=== PATIENT | female | born 1970 | race Caucasian/White ===

== ENCOUNTER 2017-11-23 14:28 | Emergency (ER) | payer OTHER, MEDICAID, SELFPAY | END 2017-11-23 15:32 | disposition left against medical advice (07) | PROVIDERS: Family Provider Family Medicine; PCP Family Medicine; Referring Provider Family Medicine | DX: F41.9 Anxiety disorder, unspecified (principal) | CPT/HCPCS: 99282 ==

== ENCOUNTER 2018-01-01 20:04 | Emergency (ER) | payer OTHER, MEDICAID, SELFPAY ==
[2018-01-01 20:04] VITALS: BP 141/92; PULSE 97; RESP 20; TEMP 36.4; O2SAT 100; BMI 30.1
[2018-01-01 20:29] LABS: Add Manual Diff / Slide Review NO; Basophils Percent Auto 0.7 % (0-2); Eosinophils Percent Auto 0.9 % (2-4); Hematocrit 38.6 % (36-46); Hemoglobin 13.5 g/dL (12.0-16.0); Lymphocytes Percent Auto 34.3 % (25-40); Mean Corpuscular HGB Conc 34.9 % (30-36); Mean Corpuscular Hemoglobin 30.7 PG (26-34); Mean Corpuscular Volume 88.1 fL (80-100); Neutrophils Absolute Auto 4600 /uL (3000-5900); Neutrophils Percent Auto 60.1 % (50-75); Platelet Count 196 X10^3/uL (150-400); Red Blood Cell Count 4.38 X10^6/uL (4.0-5.2); Red Cell Distribution Width 12.4 % (11.6-14.8); White Blood Cell Count 7.7 X10^3/uL (4.5-11.0)
[2018-01-01 20:40] LABS: Acetaminophen < 10 ug/dL (10-30); Alanine Aminotransferase 20 IU/L (9-52); Albumin Globulin Ratio 1.3 (1.0-2.8); Alkaline Phosphatase 103 U/L (38-126); Aspartate Aminotransferase 14 IU/L (14-36); BUN Creatinine Ratio 8.8 (6-22); Bilirubin Total 0.4 mg/dL (0.2-1.3); Calcium 9.6 mg/dL (8.4-10.2); Estimated Glomerular Filt Rate > 60.0 mL/min (>60); Ethanol (ETOH) < 10 mg/dL; Glucose 83 mg/dL (70-100); HEMOLYSIS < 15 (0-50); Potassium 3.7 mmol/L (3.4-5.1); Salicylate < 1.0 mg/dL (<20); Sodium 142 mmol/L (137-145)
[2018-01-01 20:51] LABS: Bacteria Urine Few (2-10); Culture Indicated Urine Cult Not Indicated; Hyaline Casts Urine 10-30/LPF; Mucus Urine 1+ (Negative); RBC Urine 0-1/HPF (0-5/HPF); Squamous Epithelial Cell Urine 10-30 /HPF; Urine Amphetamines Positive (Negative); Urine Barbiturates Negative (Negative); Urine Benzodiazepines Negative (Negative); Urine Cocaine Negative (Negative); Urine MDMA Negative (Negative); Urine Methadone Negative (Negative); Urine Methamphetamines Positive (Negative); Urine Morphine/Opi cutoff 2000 Negative (Negative); Urine Oxycodone Negative (Negative); Urine Phencyclidine Negative (Negative); Urine Tetrahydrocannabinol Positive (Negative); Urine Tricyclic Antidepressant Negative (Negative); WBC Urine 5-10/HPF (0-5/HPF)
--- NOTE | 2018-01-01 21:00 | PC.NURSE ---
PT TRYING TO LEAVE HOSPITAL ROOM TO SMOKE CIGARETTE. PT INFORMED SHE IS NOT ALLOWED TO SMOKE ON HOSPITAL PREMISES. POLICE CALLED. PROVIDER INFORMED. PT VOLUNTARILY WALKED BACK TO ER ROOM. CHARGE NURSE AND PROVIDER AWARE OF SITUATION. PT PLACED INTO ROOM 13 WITH DOOR OPEN. NO NEW ORDERS AT THIS TIME PER PROVIDER.
--- NOTE | 2018-01-01 23:11 | PC.NURSE ---
SPOKE WITH PAOLA FROM DISPATCH CRISIS RESPONSE PER PROVIDER IN ORDER TO GET PT ASSESSED BY DCR.
--- NOTE | 2018-01-01 23:34 | PC.NURSE ---
DCR CONTACTED ETA 1 HOUR. PROVIDER AWARE PT IS CRYING AND PACING ROOM IN SECLUSION.
[2018-01-02 01:35] VITALS: BP 113/69; PULSE 75; RESP 20; TEMP 36.6; O2SAT 98
--- NOTE | 2018-01-02 01:36 | PC.NURSE ---
DCR AT BEDSIDE. SPOKE WITH MARIAM RN ABOUT PLACEMENT. PROVIDER AWARe
--- NOTE | 2018-01-02 02:09 | ED_ITS ---
HPI - Overdose General Chief Complaint: Toxicology Problem Stated Complaint: Drug OD History of Present Illness HPI Narrative: HPI 47-year-old female history of polysubstance abuse and prior suicide attempts presents after ingesting upwards of 8 ibuprofen and attempt to harm/kill herself. Patient present lights a rambling, loosely organized, invariable history notable for concern for other people threatening her and there being a gang in town that is persecutory / hostile, as such the patient took ibuprofen and attempt to kill herself. Patient reports that she previously took acetaminophen and overdosed harm herself. Patient variably reports that a family member sometime recently ago at home and she wants to go home and grieve. Patient denies hallucinations. M/S/F/SocHx notable for: bipolar one disorder, paranoia, drug induced psychotic disorder, hallucinations, fibromyalgia, anxiety, chronic pain syndrome, depression,; remainder reviewed with patient and in chart. ROS: Negative constitutional, eye, cardiovascular, pulmonary, GI, , MSK, skin , neurologic, psychiatric, endocrine unless noted in the HPI. Exam Gen: unusual mood and affect, intermittently redirectable. No clear responding to external stimuli. HEENT: normocephalic, atraumatic, PEERL, EOMI. Resp: clear to auscultation bilaterally, unlabored respirations with a normal work of breathing Card: regular rate and rhythm GI: non-tender, non-distended. MSK: No visible deformities, strength and tone within normal limits. Skin: Normal color with no visible lesions. Neuro: alert and oriented times 3, moving all extremities without appreciable deficit. Psych: markedly unusual mood and affect. Labs / Imaging (pertinent): WBC 7.7, HB 13.5, sodium 142, potassium 3.7, AST 14, ALT 20 11/27/17 - TSH 1.11, free T4 1.13 UDS with amphetamines, methamphetamines, marijuana, EtOH less than 10, acetaminophen less than 10, salicylates less than 1.0. MDM Previous chart, nursing note, and vitals reviewed. A: 47-year-old female history of polysubstance abuse prior suicide attempts presents after ingesting upwards of 8 ibuprofen and attempt to harm/kill herself. DDx: suicidal ideation, suicidal gesture, depression, overdose, intoxication, infectious process, thyroid, electrolyte or hematologic abnormalities. Medical evaluation: history and exam concerning for amphetamines induced psychosis/exacerbation of underlying mental illness. No clear evidence of an active infectious process. Salicylate and acetaminophen levels are below detection, and their alcohol level is below detection. Recent TSH is within normal limits. UDS notable for amphetamines, methamphetamines, and THC. CBC and BMP were reviewed and were within normal limits. Patient medically cleared for further inpatient mental health care. Suicidal evaluation: patient considered high risk due to prior attempts, knowledge of lethal medications, ongoing suicidal statements, and active psychosis. Patient attempted to flee from emergency department. Patient intermittently redirectable. Patient placed in seclusion for own safety. Patient placed on mental health hold. Mental health evaluation obtained. Patient transferred for further mental health care. Impression: suicide attempt, psychosis (please reference below for remainder of encounter information) Related Data Home Medications Medication Instructions Recorded Confirmed olanzapine [Zyprexa] 5 mg PO BID #0 07/31/17 Previous Rx's Medication Instructions Recorded albuterol sulfate 3 ml INH Q4HP #90 ea 03/11/16 triamcinolone acetonide 0 gm TOPICAL BID #1 tube 03/11/16 Disabled Parking Permit / . #1 10/04/16 epinephrine 0.3 mg IM X1 #1 syr 02/01/17 hydroxyzine HCl 0 mg PO Q6HP PRN #120 tab 02/01/17 lovastatin 20 mg PO QDAYPM #90 tab 02/02/17 cholecalciferol (vitamin D3) 4,000 iu PO QDAY #100 cap 03/14/17 [Vitamin D3] omeprazole 40 mg PO QAM #30 cap 03/30/17 albuterol sulfate [Ventolin HFA] 2 puff INH Q4HP PRN #8 gm 04/18/17 ibuprofen 800 mg PO Q8HP PRN #30 tab 06/11/17 Disabled Parking Permit / . #1 06/15/17 levothyroxine 0.1 mg PO QAM #90 tab 08/01/17 clonazepam [Klonopin] 1 mg PO QID #120 08/02/17 CHLORZOXAZONE (PARAFON FORTE DSC) 500 mg PO TID #90 tab 09/04/17 lamotrigine [Lamictal] 50 mg PO HS #60 mg 09/04/17 Disabled Parking Permit / . #1 09/14/17 meloxicam [Mobic] 15 mg PO AMCC #90 tab 09/19/17 oxycodone 0 PO Q6HP #40 tab 09/28/17 oxycodone 0 PO Q6HP PRN #224 tab 09/28/17 conj estrog-medroxyprogest maia 1 tab PO QDAY #90 tab 10/02/17 [Prempro] mirtazapine [Remeron] 15 mg PO HS #30 tab 10/02/17 Disabled Parking Permit ian #1 10/20/17 furosemide 40 mg PO QDAY #30 tab 11/03/17 oxybutynin chloride [Ditropan XL] 10 mg PO QDAY #90 tab 11/06/17 citalopram [Celexa] 40 mg PO QDAY #90 tab 11/22/17 gabapentin [Neurontin] 1,200 mg PO TID #180 tab 11/22/17 hydrocodone-acetaminophen [[place]] 1 - 2 tab PO SEE INSTRUCTIONS #120 12/05/17 tab Allergies Allergy/AdvReac Type Severity Reaction Status Date / Time amphetamine [From ADDERALL] Allergy Severe BLISTERING Unverified 11/22/17 13:06 codeine [CODEINE] Allergy Severe Anaphylaxis Unverified 11/22/17 13:06 dextroamphetamine Allergy Severe BLISTERING Unverified 11/22/17 13:06 [From ADDERALL] latex [LATEX] Allergy Severe Heart Unverified 11/22/17 13:06 Palpitation Penicillins [PENICILLINS] Allergy Severe Anaphylaxis Unverified 11/22/17 13:06 Sulfa (Sulfonamide Allergy Severe tachycardia Unverified 11/22/17 13:06 Antibiotics) [SULFA (SULFONAMIDE ANTIBIOTICS)] adhesive [ADHESIVE] Allergy Mild Unverified 11/22/17 13:06 cephalexin [CEPHALEXIN] Allergy Mild Hives Unverified 11/22/17 13:06 cyclobenzaprine Allergy Mild Tachycardia Unverified 11/22/17 13:06 [CYCLOBENZAPRINE] fluticasone [From FLONASE] Allergy Mild Unverified 11/22/17 13:06 zolpidem [From AMBIEN] Allergy Unknown I'M NOT Unverified 11/22/17 13:06 [facility] Social History Smoking Status: Current every day smoker Exam Initial Vital Signs Initial Vital Signs: Vital Signs Temperature 97.6 F 01/01/18 20:04 Pulse Rate 97 H 01/01/18 20:04 Respiratory Rate 20 01/01/18 20:04 Blood Pressure 141/92 H 01/01/18 20:04 Pulse Oximetry 100 01/01/18 20:04 Course Orders Ordered: ED Orders 01/01/18 20:20 Acetaminophen Stat Complete Blood Count AUTO DIFF Stat Comprehensive Metabolic Panel Stat Ethanol (ETOH) Stat Salicylate Stat 01/01/18 20:35 Rapid Drug Screen, Urine Stat Urine Microscopic Stat 01/02/18 01:25 TSH [Thyroid Stimulating Hormone] Stat Discontinued Medications Haloperidol (Haldol) 5 mg IM NOW ONE Stop: 01/01/18 23:02 Last Admin: 01/02/18 01:29 Dose: Lorazepam (Ativan) 2 mg IM NOW ONE Stop: 01/01/18 23:02 Last Admin: 01/02/18 01:28 Dose: Vital Signs - 8 hr 01/01/18 20:04 01/02/18 01:35 Temperature 97.6 F 98 F Pulse Rate 97 H 75 Respiratory Rate 20 20 Blood Pressure 141/92 H Blood Pressure [Left Arm] 113/69 Pulse Oximetry 100 98 MDM - Overdose Lab Data Result diagrams: 01/01/18 20:20 01/01/18 20:20 Lab Results 01/01/18 01/01/18 01/01/18 Range/Units 20:20 20:20 20:35 WBC 7.7 (4.5-11.0) X10^3/uL RBC 4.38 (4.0-5.2) X10^6/uL Hgb 13.5 (12.0-16.0) g/dL Hct 38.6 (36-46) % MCV 88.1 (80-100) fL MCH 30.7 (26-34) PG MCHC 34.9 (30-36) % RDW 12.4 (11.6-14.8) % Plt Count 196 (150-400) X10^3/uL Neut % (Auto) 60.1 (50-75) % Lymph % (Auto) 34.3 (25-40) % [place] % (Auto) 4.0 (3-14) % Eos % (Auto) 0.9 L (2-4) % Baso % (Auto) 0.7 (0-2) % Neut # (Auto) 4600 (0874-1707) /uL Sodium 142 (137-145) mmol/L Potassium 3.7 (3.4-5.1) mmol/L Chloride 105.0 (98-107) mmol/L Carbon Dioxide 25.0 (22-32) mmol/L BUN 7.0 (7-17) mg/dL Creatinine 0.80 (0.52-1.04) mg/dL Estimated GFR > 60.0 (>60) mL/min BUN/Creatinine Ratio 8.8 (6-22) Glucose 83 (70-100) mg/dL Calcium 9.6 (8.4-10.2) mg/dL Total Bilirubin 0.4 (0.2-1.3) mg/dL AST 14 (14-36) IU/L ALT 20 (9-52) IU/L Alkaline Phosphatase 103 (38-126) U/L Total Protein 7.0 (6.3-8.2) g/dL Albumin 4.0 (3.5-5.0) g/dL Globulin 3.0 (1.7-4.1) g/dL Albumin/Globulin Ratio 1.3 (1.0-2.8) Urine RBC 0-1/hpf (0-5/HPF) Urine WBC 5-10/hpf H (0-5/HPF) Ur Squamous Epith Cells 10-30 /hpf H Urine Bacteria Few (2-10) H (None) Hyaline Casts 10-30/lpf (None) Urine Mucus 1+ H (Negative) Ur Culture Indicated? Cult not indicated Micro UA Comment Not Reportable Salicylates < 1.0 (<20) mg/dL Urine Opiates Screen (Negative) Ur Oxycodone Screen (Negative) Urine Methadone Screen (Negative) Acetaminophen < 10 L (10-30) ug/dL Ur Barbiturates Screen (Negative) U Tricyclic Antidepress (Negative) Ur Phencyclidine Scrn (Negative) Ur Amphetamines Screen (Negative) U Methamphetamines Scrn (Negative) Ur MDMA Scrn (Ecstasy) (Negative) U Benzodiazepines Scrn (Negative) Urine Cocaine Screen (Negative) U Marijuana (THC) Screen (Negative) Ethyl Alcohol < 10 mg/dL 01/01/18 Range/Units 20:35 WBC (4.5-11.0) X10^3/uL RBC (4.0-5.2) X10^6/uL Hgb (12.0-16.0) g/dL Hct (36-46) % MCV (80-100) fL MCH (26-34) PG MCHC (30-36) % RDW (11.6-14.8) % Plt Count (150-400) X10^3/uL Neut % (Auto) (50-75) % Lymph % (Auto) (25-40) % [place] % (Auto) (3-14) % Eos % (Auto) (2-4) % Baso % (Auto) (0-2) % Neut # (Auto) (2219-7073) /uL Sodium (137-145) mmol/L Potassium (3.4-5.1) mmol/L Chloride (98-107) mmol/L Carbon Dioxide (22-32) mmol/L BUN (7-17) mg/dL Creatinine (0.52-1.04) mg/dL Estimated GFR (>60) mL/min BUN/Creatinine Ratio (6-22) Glucose (70-100) mg/dL Calcium (8.4-10.2) mg/dL Total Bilirubin (0.2-1.3) mg/dL AST (14-36) IU/L ALT (9-52) IU/L Alkaline Phosphatase (38-126) U/L Total Protein (6.3-8.2) g/dL Albumin (3.5-5.0) g/dL Globulin (1.7-4.1) g/dL Albumin/Globulin Ratio (1.0-2.8) Urine RBC (0-5/HPF) Urine WBC (0-5/HPF) Ur Squamous Epith Cells Urine Bacteria (None) Hyaline Casts (None) Urine Mucus (Negative) Ur Culture Indicated? Micro UA Comment Salicylates (<20) mg/dL Urine Opiates Screen Negative (Negative) Ur Oxycodone Screen Negative (Negative) Urine Methadone Screen Negative (Negative) Acetaminophen (10-30) ug/dL Ur Barbiturates Screen Negative (Negative) U Tricyclic Antidepress Negative (Negative) Ur Phencyclidine Scrn Negative (Negative) Ur Amphetamines Screen Positive H (Negative) U Methamphetamines Scrn Positive H (Negative) Ur MDMA Scrn (Ecstasy) Negative (Negative) U Benzodiazepines Scrn Negative (Negative) Urine Cocaine Screen Negative (Negative) U Marijuana (THC) Screen Positive H (Negative) Ethyl Alcohol mg/dL Discharge Plan Departure Prescriptions: No Action albuterol sulfate 2.5 MG/3 ML solution for nebulization 3 ml INH Q4HP Qty: 90 RF: 5 triamcinolone acetonide 0.1 % cream Topical BID Qty: 1 RF: 5 Disabled Parking Permit . Qty: 1 RF: 0 hydroxyzine HCl 25 MG tablet PO Q6HP PRNQty: 120 RF: 5 epinephrine 0.3 MG/0.3 ML auto-injector 0.3 mg IM X1 Qty: 1 RF: 5 lovastatin 20 MG tablet 20 mg PO QDAYPM Qty: 90 RF: 3 cholecalciferol (vitamin D3) [Vitamin D3] 4,000 UNIT capsule 4,000 iu PO QDAY Qty: 100 RF: 5 omeprazole 40 MG capsule,delayed release(DR/EC) 40 mg PO QAM Qty: 30 RF: 11 albuterol sulfate [Ventolin HFA] 90 MCG/PUFF HFA aerosol inhaler 2 puff INH Q4HP PRNQty: 8 RF: 11 ibuprofen 800 MG tablet 800 mg PO Q8HP PRNQty: 30 RF: 0 Disabled Parking Permit . Qty: 1 RF: 0 olanzapine [Zyprexa] 10 MG tablet 5 mg PO BID Qty: 0 RF: 0 levothyroxine 100 MCG tablet 0.1 mg PO QAM Qty: 90 RF: 1 clonazepam [Klonopin] 1 MG tablet 1 mg PO QID Qty: 120 RF: 5 lamotrigine [Lamictal] 25 MG tablet 50 mg PO HS Qty: 60 RF: 0 CHLORZOXAZONE (PARAFON FORTE DSC) 500 mg PO TID Qty: 90 RF: 0 Disabled Parking Permit . Qty: 1 RF: 0 meloxicam [Mobic] 15 MG tablet 15 mg PO AMCC Qty: 90 RF: 1 oxycodone 10 MG tablet PO Q6HP PRNQty: 224 RF: 0 oxycodone 10 MG tablet PO Q6HP Qty: 40 RF: 0 mirtazapine [Remeron] 15 MG tablet 15 mg PO HS Qty: 30 RF: 5 conj estrog-medroxyprogest maia [Prempro] 0.625 MG/2.5 MG tablet 1 tab PO QDAY Qty: 90 RF: 0 Disabled Parking Permit Qty: 1 RF: 0 furosemide 40 MG tablet 40 mg PO QDAY Qty: 30 RF: 3 oxybutynin chloride [Ditropan XL] 10 MG tablet extended release 24hr 10 mg PO QDAY Qty: 90 RF: 1 citalopram [Celexa] 40 MG tablet 40 mg PO QDAY Qty: 90 RF: 3 gabapentin [Neurontin] 600 MG tablet 1,200 mg PO TID Qty: 180 RF: 1 hydrocodone-acetaminophen [[place]] 10 MG/325 MG tablet 1 - 2 tab PO SEE INSTRUCTIONS Qty: 120 RF: 0
[2018-01-02 02:11] LABS: Thyroid Stimulating Hormone 1.22 uIU/mL (0.47-4.68)
[2018-01-02] MEDS: HALOPERIDOL 5 MG/ML VIAL IM (03:37)
[2018-01-02] MEDS: diphenhydrAMINE 50 MG/ML VIAL 25 MG IM (03:37)
[2018-01-02 03:44] VITALS: BP 132/78; PULSE 85; RESP 18
--- NOTE | 2018-01-02 04:25 | PC.NURSE ---
Unable to document in OCT. @ 0337 25 mg benadryl, 2 mg ativan, and 5 mg of haldol given IM (verbal orders received by Dr Ackerman) to help with pt agitation and harm to self. Prior to administration pt was banging arms on door and screaming.
[2018-01-02 06:01] VITALS: BP 111/69; PULSE 61; RESP 14; O2SAT 97
[2018-01-02 08:45] VITALS: BP 124/81; PULSE 65; RESP 16; O2SAT 97
--- NOTE | 2018-01-02 08:51 | PC.NURSE ---
Pt awakened for vs, very cooperative, up to bathroom. aware of transfer and agreeable. nad. pt transfer to [facility] via ambulance.
== END 2018-01-02 08:57 | disposition short-term general hospital (02) ==
PROVIDERS: Emergency Medicine; Emergency Provider Emergency Medicine; Family Provider Family Medicine; PCP Family Medicine
DX: T14.91XA Suicide attempt, initial encounter (principal); F29 Unspecified psychosis not due to a substance or known physiological condition
CPT/HCPCS: 36415; 80053; 80305; 80320; 80329; 81003; 81015; 81025; 84443; 85025; 96372; 99285; G0480; J1200; J1630

== ENCOUNTER 2018-01-23 13:52 | Emergency (ER) | payer OTHER, MEDICAID, SELFPAY ==
[2018-01-23 14:18] VITALS: BP 112/70; PULSE 70; RESP 14; TEMP 36.1; O2SAT 98
--- NOTE | 2018-01-23 14:26 | DI.RAD.S_ITS ---
PROCEDURE: XR ANKLE LT MIN 3V INDICATIONS: inversion injury yesterday - pop felt in achilles area today TECHNIQUE: 3 views of the ankle were acquired. COMPARISON: [facility], ANKLE 3 VIEWS RIGHT, 01/23/2017, 14:50. [facility], ANKLE 3 VIEWS LEFT, 07/03/2014, 18:48. [facility], ANKLE 3 VIEWS RIGHT, 08/27/2013, 15:32. FINDINGS: Bones: No fractures or dislocations. An accessory ossicle overlies the medial aspect of the distal tip of the fibula, seen on the straight AP projection Ankl. se is normally aligned. No suspicious bony lesions. Soft tissues: No tibiotalar joint effusion. Achilles tendon appears normal. IMPRESSION: What appears to be an accessory ossicle overlies the inferior medial aspect of the distal fibula on the straight AP projection. No definite fracture found. Dictated by: Wiliam Claudio M.D. on 01/23/2018 at 14:52 Approved by: Wiliam Claudio M.D. on 01/23/2018 at 14:54
[2018-01-23 15:57] VITALS: PULSE 80
[2018-01-23] MEDS: ACETAMINOPHEN 325 MG TABLET 650 MG PO (16:02)
[2018-01-23] MEDS: IBUPROFEN 400 MG TABLET PO (16:03)
--- NOTE | 2018-01-23 16:11 | ED.LOWEXIN ---
HPI - Extremity Injury (Lower) <Park Lacey PA-C - Last Filed: 01/23/18 21:56> General Chief Complaint: Extremity Injury, Lower Stated Complaint: FELL YESTERDAY,POSSIBLY PULLED ACHILLES Time Seen by Provider: 01/23/18 16:11 Source: patient Mode of arrival: wheelchair Limitations: no limitations History of Present Illness HPI Narrative: This 47 year old female is staying at a local campground. She states that she rolled her left ankle and fell 2 days ago and has had some pain but able to walk. She states she walked a long way to the bus today and felt a pop earlier, then it began hurting more on the side and also in the back of her ankle. She states that it does feel like it could give out on her, and this and pain keep her from walking. She denies any paresthesia, other injuries or pain. Related Data Previous Rx's Medication Instructions Recorded albuterol sulfate 3 ml INH Q4HP #90 ea 03/11/16 epinephrine 0.3 mg IM X1 #1 syr 02/01/17 lovastatin 20 mg PO QDAYPM #90 tab 02/02/17 omeprazole 40 mg PO QAM #30 cap 03/30/17 albuterol sulfate [Ventolin HFA] 2 puff INH Q4HP PRN #8 gm 04/18/17 levothyroxine 0.1 mg PO QAM #90 tab 08/01/17 clonazepam [Klonopin] 1 mg PO QID #120 08/02/17 meloxicam [Mobic] 15 mg PO AMCC #90 tab 09/19/17 mirtazapine [Remeron] 15 mg PO HS #30 tab 10/02/17 furosemide 40 mg PO QDAY #30 tab 11/03/17 oxybutynin chloride [Ditropan XL] 10 mg PO QDAY #90 tab 11/06/17 citalopram [Celexa] 40 mg PO QDAY #90 tab 11/22/17 gabapentin [Neurontin] 1,200 mg PO TID #180 tab 11/22/17 Allergies Allergy/AdvReac Type Severity Reaction Status Date / Time amphetamine [From ADDERALL] Allergy Severe BLISTERING Verified 01/23/18 16:05 codeine [CODEINE] Allergy Severe Anaphylaxis Verified 06/12/18 16:05 dextroamphetamine Allergy Severe BLISTERING Verified 01/23/18 16:05 [From ADDERALL] latex [LATEX] Allergy Severe Heart Verified 01/23/18 16:05 Palpitation Penicillins [PENICILLINS] Allergy Severe Anaphylaxis Verified 01/23/18 16:05 Sulfa (Sulfonamide Allergy Severe tachycardia Verified 01/23/18 16:05 Antibiotics) [SULFA (SULFONAMIDE ANTIBIOTICS)] adhesive [ADHESIVE] Allergy Mild Verified 01/23/18 16:05 cephalexin [CEPHALEXIN] Allergy Mild Hives Verified 01/23/18 16:05 cyclobenzaprine Allergy Mild Tachycardia Verified 01/23/18 16:05 [CYCLOBENZAPRINE] fluticasone [From FLONASE] Allergy Mild Verified 01/23/18 16:05 zolpidem [From AMBIEN] Allergy Unknown I'M NOT Verified 01/23/18 16:05 SURE Review of Systems <MADAY Cameron Last Filed: 01/23/18 21:56> Review of Systems All systems reviewed & are unremarkable except as noted in HPI and below Exam <MADAY Cameron Last Filed: 01/23/18 21:56> Narrative Exam Narrative: GENERAL APPEARANCE: Patient sitting comfortably, in no distress. LUNGS: Clear to auscultation bilaterally. HEART: Rate and rhythm regular without murmur, normal S1 and S2, no S3 or S4. MUSCULOSKELETAL: Left ankle there is no effusion. Tender over the Achilles, which is intact by palpation, as well as inferior and anterior to the lateral malleolus. No tenderness elsewhere over the ankle. No tenderness over the metatarsals or tarsal bones. She has slightly reduced flexion/extension of the ankle secondary to tenderness but strength is intact against resistance. NEUROVASCULAR: Left foot is warm and pink with intact pedal pulses and sensation grossly intact Initial Vital Signs Initial Vital Signs: Vital Signs Temperature 97 F L 01/23/18 14:18 Pulse Rate 70 01/23/18 14:18 Respiratory Rate 14 01/23/18 14:18 Blood Pressure 112/70 01/23/18 14:18 Pulse Oximetry 98 01/23/18 14:18 <Neftali Keane DO - Last Filed: 01/29/18 08:30> Initial Vital Signs Initial Vital Signs: Vital Signs Temperature 97 F L 01/23/18 14:18 Pulse Rate 70 01/23/18 14:18 Respiratory Rate 14 01/23/18 14:18 Blood Pressure 112/70 01/23/18 14:18 Pulse Oximetry 98 01/23/18 14:18 Course <Park Lacey PA-C - Last Filed: 01/23/18 21:56> Hospital Course: Reviewed x-ray findings with patient. She is able to ambulate with Aroldo wrapping and ankle splint. Advised follow-up with PCP 1 week and repeat x-rays if not improving, and she is agreeable Orders Ordered: Discontinued Medications Acetaminophen (Tylenol) 650 mg PO NOW ONE Stop: 01/23/18 15:57 Last Admin: 01/23/18 16:02 Dose: 650 mg Ibuprofen (Advil) 400 mg PO NOW ONE Stop: 01/23/18 15:58 Last Admin: 01/23/18 16:03 Dose: 400 mg Vital Signs - 8 hr 01/23/18 14:18 01/23/18 15:57 01/23/18 16:35 Temperature 97 F L Pulse Rate 70 70 Pulse Rate [Left Dorsalis Pedis] 80 Respiratory Rate 14 14 Blood Pressure 112/70 Blood Pressure [Left Arm] 110/72 Pulse Oximetry 98 95 <Neftali Keane DO - Last Filed: 01/29/18 08:30> Orders Ordered: Discontinued Medications Acetaminophen (Tylenol) 650 mg PO NOW ONE Stop: 01/23/18 15:57 Last Admin: 01/23/18 16:02 Dose: 650 mg Ibuprofen (Advil) 400 mg PO NOW ONE Stop: 01/23/18 15:58 Last Admin: 01/23/18 16:03 Dose: 400 mg Vital Signs - 8 hr 01/23/18 14:18 01/23/18 15:57 01/23/18 16:35 Temperature 97 F L Pulse Rate 70 70 Pulse Rate [Left Dorsalis Pedis] 80 Respiratory Rate 14 14 Blood Pressure 112/70 Blood Pressure [Left Arm] 110/72 Pulse Oximetry 98 95 MDM - Extremity Injury (Lower) <Park Lacey PA-C - Last Filed: 01/23/18 21:56> Imaging Data ankle: Radiologist's impression: [address] [address] XRay Report Signed Patient: Chrissie Sarabia MR#: [id number] : 1970 Acct:[id number] Age/Sex: 47 / F Date of Service: 01/23/18 Loc: ED Accession Number: [id number] Procedure: XR ankle LT min 3V Ordering Provider: Park Lacey P.A-C PROCEDURE: XR ANKLE LT MIN 3V INDICATIONS: inversion injury yesterday - pop felt in achilles area today TECHNIQUE: 3 views of the ankle were acquired. COMPARISON: [facility], [facility], ANKLE 3 VIEWS RIGHT, 01/23/2017, 14:50. [facility], CR, ANKLE 3 VIEWS LEFT, 07/03/2014, 18:48. [facility], , ANKLE 3 VIEWS RIGHT, 08/27/2013, 15:32. FINDINGS: Bones: No fractures or dislocations. An accessory ossicle overlies the medial aspect of the distal tip of the fibula, seen on the straight AP projection Ankl. se is normally aligned. No suspicious bony lesions. Soft tissues: No tibiotalar joint effusion. Achilles tendon appears normal. IMPRESSION: What appears to be an accessory ossicle overlies the inferior medial aspect of the distal fibula on the straight AP projection. No definite fracture found. Dictated by: Wiliam Claudio M.D. on 01/23/2018 at 14:52 Approved by: Wiliam Claudio M.D. on 01/23/2018 at 14:54 Discharge Plan Departure Patient Disposition: Home, Self-Care Clinical Impression: Ankle sprain Discharge Date/Time: 01/23/18 17:13 Interventions: ED Discharge Assessment Last Done: 01/23/18 17:12 Instructions: DI for Ankle Sprain Activity Restrictions/Additional Instructions: Wear the AROLDO wrap and immobilizer splint to help with pain and stability. Use [id number] pain medicine as needed. Gentle walking on even ground is okay as tolerated. Return as we talked about if you have any acutely worsening symptoms. Otherwise, follow up with your PCP is this is not getting better in the next week as you may need repeat x-rays or more testing. Prescriptions: No Action albuterol sulfate 2.5 MG/3 ML solution for nebulization 3 ml INH Q4HP Qty: 90 RF: 5 epinephrine 0.3 MG/0.3 ML auto-injector 0.3 mg IM X1 Qty: 1 RF: 5 lovastatin 20 MG tablet 20 mg PO QDAYPM Qty: 90 RF: 3 omeprazole 40 MG capsule,delayed release(DR/EC) 40 mg PO QAM Qty: 30 RF: 11 albuterol sulfate [Ventolin HFA] 90 MCG/PUFF HFA aerosol inhaler 2 puff INH Q4HP PRNQty: 8 RF: 11 levothyroxine 100 MCG tablet 0.1 mg PO QAM Qty: 90 RF: 1 clonazepam [Klonopin] 1 MG tablet 1 mg PO QID Qty: 120 RF: 5 meloxicam [Mobic] 15 MG tablet 15 mg PO AMCC Qty: 90 RF: 1 mirtazapine [Remeron] 15 MG tablet 15 mg PO HS Qty: 30 RF: 5 furosemide 40 MG tablet 40 mg PO QDAY Qty: 30 RF: 3 oxybutynin chloride [Ditropan XL] 10 MG tablet extended release 24hr 10 mg PO QDAY Qty: 90 RF: 1 citalopram [Celexa] 40 MG tablet 40 mg PO QDAY Qty: 90 RF: 3 gabapentin [Neurontin] 600 MG tablet 1,200 mg PO TID Qty: 180 RF: 1 Referrals: Paulo Dinh MD [Primary Care Provider] - <Neftali Keane DO - Last Filed: 01/29/18 08:30> Cosign ED Attending Cosignature Attestation: I was immediately available in the department for consultation. This documentation has been reviewed and I agree with assessment and plan. Supervised by Neftali Keane DO
--- NOTE | 2018-01-23 16:17 | ED_ITS ---
HPI - Extremity Injury (Lower) <Park Lacey PA-C - Last Filed: 01/23/18 21:56> General Chief Complaint: Extremity Injury, Lower Stated Complaint: FELL YESTERDAY,POSSIBLY PULLED ACHILLES Time Seen by Provider: 01/23/18 16:11 Source: patient Mode of arrival: wheelchair Limitations: no limitations History of Present Illness HPI Narrative: This 47 year old female is staying [place] a local campground. She states that she rolled her left ankle and fell 2 days ago and has had some pain but able to walk. She states she walked a long way to the bus today and felt a pop earlier, then it began hurting more on the side and also in the back of her ankle. She states that it does feel like it could give out on her, and this and pain keep her from walking. She denies any paresthesia, other injuries or pain. Related Data Previous Rx's Medication Instructions Recorded albuterol sulfate 3 ml INH Q4HP #90 ea 03/11/16 epinephrine 0.3 mg IM X1 #1 syr 02/01/17 lovastatin 20 mg PO QDAYPM #90 tab 02/02/17 omeprazole 40 mg PO QAM #30 cap 03/30/17 albuterol sulfate [Ventolin HFA] 2 puff INH Q4HP PRN #8 gm 04/18/17 levothyroxine 0.1 mg PO QAM #90 tab 08/01/17 clonazepam [Klonopin] 1 mg PO QID #120 08/02/17 meloxicam [Mobic] 15 mg PO AMCC #90 tab 09/19/17 mirtazapine [Remeron] 15 mg PO HS #30 tab 10/02/17 furosemide 40 mg PO QDAY #30 tab 11/03/17 oxybutynin chloride [Ditropan XL] 10 mg PO QDAY #90 tab 11/06/17 citalopram [Celexa] 40 mg PO QDAY #90 tab 11/22/17 gabapentin [Neurontin] 1,200 mg PO TID #180 tab 11/22/17 Allergies Allergy/AdvReac Type Severity Reaction Status Date / Time amphetamine [From ADDERALL] Allergy Severe BLISTERING Verified 01/23/18 16:05 codeine [CODEINE] Allergy Severe Anaphylaxis Verified 06/12/18 16:05 dextroamphetamine Allergy Severe BLISTERING Verified 01/23/18 16:05 [From ADDERALL] latex [LATEX] Allergy Severe Heart Verified 01/23/18 16:05 Palpitation Penicillins [PENICILLINS] Allergy Severe Anaphylaxis Verified 01/23/18 16:05 Sulfa (Sulfonamide Allergy Severe tachycardia Verified 01/23/18 16:05 Antibiotics) [SULFA (SULFONAMIDE ANTIBIOTICS)] adhesive [ADHESIVE] Allergy Mild Verified 01/23/18 16:05 cephalexin [CEPHALEXIN] Allergy Mild Hives Verified 01/23/18 16:05 cyclobenzaprine Allergy Mild Tachycardia Verified 01/23/18 16:05 [CYCLOBENZAPRINE] fluticasone [From FLONASE] Allergy Mild Verified 01/23/18 16:05 zolpidem [From AMBIEN] Allergy Unknown I'M NOT Verified 01/23/18 16:05 SURE Review of Systems <MADAY Cameron Last Filed: 01/23/18 21:56> Review of Systems All systems reviewed & are unremarkable except as noted in HPI and below Exam <MADAY Cameron Last Filed: 01/23/18 21:56> Narrative Exam Narrative: GENERAL APPEARANCE: Patient sitting comfortably, in no distress. LUNGS: Clear to auscultation bilaterally. HEART: Rate and rhythm regular without murmur, normal S1 and S2, no S3 or S4. MUSCULOSKELETAL: Left ankle there is no effusion. Tender over the Achilles, which is intact by palpation, as well as inferior and anterior to the lateral malleolus. No tenderness elsewhere over the ankle. No tenderness over the metatarsals or tarsal bones. She has slightly reduced flexion/extension of the ankle secondary to tenderness but strength is intact against resistance. NEUROVASCULAR: Left foot is warm and pink with intact pedal pulses and sensation grossly intact Initial Vital Signs Initial Vital Signs: Vital Signs Temperature 97 F L 01/23/18 14:18 Pulse Rate 70 01/23/18 14:18 Respiratory Rate 14 01/23/18 14:18 Blood Pressure 112/70 01/23/18 14:18 Pulse Oximetry 98 01/23/18 14:18 <Neftali Keane DO - Last Filed: 01/29/18 08:30> Initial Vital Signs Initial Vital Signs: Vital Signs Temperature 97 F L 01/23/18 14:18 Pulse Rate 70 01/23/18 14:18 Respiratory Rate 14 01/23/18 14:18 Blood Pressure 112/70 01/23/18 14:18 Pulse Oximetry 98 01/23/18 14:18 Course <Park Lacey PA-C - Last Filed: 01/23/18 21:56> Hospital Course: Reviewed x-ray findings with patient. She is able to ambulate with Aroldo wrapping and ankle splint. Advised follow-up with PCP 1 week and repeat x-rays if not improving, and she is agreeable Orders Ordered: Discontinued Medications Acetaminophen (Tylenol) 650 mg PO NOW ONE Stop: 01/23/18 15:57 Last Admin: 01/23/18 16:02 Dose: 650 mg Ibuprofen (Advil) 400 mg PO NOW ONE Stop: 01/23/18 15:58 Last Admin: 01/23/18 16:03 Dose: 400 mg Vital Signs - 8 hr 01/23/18 14:18 01/23/18 15:57 01/23/18 16:35 Temperature 97 F L Pulse Rate 70 70 Pulse Rate [Left Dorsalis Pedis] 80 Respiratory Rate 14 14 Blood Pressure 112/70 Blood Pressure [Left Arm] 110/72 Pulse Oximetry 98 95 <Neftali Keane DO - Last Filed: 01/29/18 08:30> Orders Ordered: Discontinued Medications Acetaminophen (Tylenol) 650 mg PO NOW ONE Stop: 01/23/18 15:57 Last Admin: 01/23/18 16:02 Dose: 650 mg Ibuprofen (Advil) 400 mg PO NOW ONE Stop: 01/23/18 15:58 Last Admin: 01/23/18 16:03 Dose: 400 mg Vital Signs - 8 hr 01/23/18 14:18 01/23/18 15:57 01/23/18 16:35 Temperature 97 F L Pulse Rate 70 70 Pulse Rate [Left Dorsalis Pedis] 80 Respiratory Rate 14 14 Blood Pressure 112/70 Blood Pressure [Left Arm] 110/72 Pulse Oximetry 98 95 MDM - Extremity Injury (Lower) <Park Lacey PA-C - Last Filed: 01/23/18 21:56> Imaging Data ankle: Radiologist's impression: [address] [address] XRay Report Signed Patient: Chrissie Sarabia MR#: [id number] : 1970 Acct:[id number] Age/Sex: 47 / F Date of Service: 01/23/18 Loc: ED Accession Number: [id number] Procedure: XR ankle LT min 3V Ordering Provider: Park Lacey P.A-C PROCEDURE: XR ANKLE LT MIN 3V INDICATIONS: inversion injury yesterday - pop felt in achilles area today TECHNIQUE: 3 views of the ankle were acquired. COMPARISON: [facility], CR, ANKLE 3 VIEWS RIGHT, 01/23/2017, 14:50. [facility], CR, ANKLE 3 VIEWS LEFT, 07/03/2014, 18:48. [facility], , ANKLE 3 VIEWS RIGHT, 08/27/2013, 15:32. FINDINGS: Bones: No fractures or dislocations. An accessory ossicle overlies the medial aspect of the distal tip of the fibula, seen on the straight AP projection Ankl. se is normally aligned. No suspicious bony lesions. Soft tissues: No tibiotalar joint effusion. Achilles tendon appears normal. IMPRESSION: What appears to be an accessory ossicle overlies the inferior medial aspect of the distal fibula on the straight AP projection. No definite fracture found. Dictated by: Wiliam Claudio M.D. on 01/23/2018 at 14:52 Approved by: Wiliam Claudio M.D. on 01/23/2018 at 14:54 Discharge Plan Departure Patient Disposition: Home, Self-Care Clinical Impression: Ankle sprain Discharge Date/Time: 01/23/18 17:13 Interventions: ED Discharge Assessment Last Done: 01/23/18 17:12 Instructions: DI for Ankle Sprain Activity Restrictions/Additional Instructions: Wear the AROLDO wrap and immobilizer splint to help with pain and stability. Use [id number] pain medicine as needed. Gentle walking on even ground is okay as tolerated. Return as we talked about if you have any acutely worsening symptoms. Otherwise, follow up with your PCP is this is not getting better in the next week as you may need repeat x-rays or more testing. Prescriptions: No Action albuterol sulfate 2.5 MG/3 ML solution for nebulization 3 ml INH Q4HP Qty: 90 RF: 5 epinephrine 0.3 MG/0.3 ML auto-injector 0.3 mg IM X1 Qty: 1 RF: 5 lovastatin 20 MG tablet 20 mg PO QDAYPM Qty: 90 RF: 3 omeprazole 40 MG capsule,delayed release(DR/EC) 40 mg PO QAM Qty: 30 RF: 11 albuterol sulfate [Ventolin HFA] 90 MCG/PUFF HFA aerosol inhaler 2 puff INH Q4HP PRNQty: 8 RF: 11 levothyroxine 100 MCG tablet 0.1 mg PO QAM Qty: 90 RF: 1 clonazepam [Klonopin] 1 MG tablet 1 mg PO QID Qty: 120 RF: 5 meloxicam [Mobic] 15 MG tablet 15 mg PO AMCC Qty: 90 RF: 1 mirtazapine [Remeron] 15 MG tablet 15 mg PO HS Qty: 30 RF: 5 furosemide 40 MG tablet 40 mg PO QDAY Qty: 30 RF: 3 oxybutynin chloride [Ditropan XL] 10 MG tablet extended release 24hr 10 mg PO QDAY Qty: 90 RF: 1 citalopram [Celexa] 40 MG tablet 40 mg PO QDAY Qty: 90 RF: 3 gabapentin [Neurontin] 600 MG tablet 1,200 mg PO TID Qty: 180 RF: 1 Referrals: Paulo Dinh MD [Primary Care Provider] - <Neftali Keane DO - Last Filed: 01/29/18 08:30> Cosign ED Attending Cosignature Attestation: I was immediately available in the department for consultation. This documentation has been reviewed and I agree with assessment and plan. Supervised by Neftali Keane DO
[2018-01-23 16:35] VITALS: BP 110/72; PULSE 70; RESP 14; O2SAT 95
== END 2018-01-23 17:13 | disposition home or self-care (01) ==
PROVIDERS: Emergency Provider Internal Medicine; Family Provider Nurse Practitioner; PCP Family Medicine
DX: S93.402A Sprain of unspecified ligament of left ankle, initial encounter (principal); W01.0XXA Fall on same level from slipping, tripping and stumbling without subsequent striking against object, initial encounter
CPT/HCPCS: 29540; 73610; 99283

== ENCOUNTER 2018-02-19 10:11 | Emergency (ER) | payer OTHER, MEDICAID, SELFPAY ==
[2018-02-19 10:14] VITALS: BP 142/92; PULSE 82; RESP 14; TEMP 36.4; O2SAT 100; BMI 29.2
--- NOTE | 2018-02-19 10:32 | ED_ITS ---
HPI - Female Genitourinary General Chief complaint: Urogenital-Female Stated complaint: lower abomdinal pain Time Seen by Provider: 02/19/18 10:21 Source: patient Mode of arrival: ambulatory Limitations: no limitations History of Present Illness HPI Narrative: Patient here for evaluation of 2 weeks of bilateral lower abdominal pain. She states that the right is greater than the left. States she also has dysuria. Frequency. She states that it feels just like her prior urinary tract infections. She states that she does get the lower abdominal pain when she does get urinary tract infections. No nausea or vomiting. No back pain. Has not tried anything for it. States she has been given doxycycline in the past which has helped the symptoms. Related Data Previous Rx's Medication Instructions Recorded albuterol sulfate 3 ml INH Q4HP #90 ea 03/11/16 epinephrine 0.3 mg IM X1 #1 syr 02/01/17 lovastatin 20 mg PO QDAYPM #90 tab 02/02/17 omeprazole 40 mg PO QAM #30 cap 03/30/17 albuterol sulfate [Ventolin HFA] 2 puff INH Q4HP PRN #8 gm 04/18/17 levothyroxine 0.1 mg PO QAM #90 tab 08/01/17 clonazepam [Klonopin] 1 mg PO QID #120 08/02/17 meloxicam [Mobic] 15 mg PO AMCC #90 tab 09/19/17 mirtazapine [Remeron] 15 mg PO HS #30 tab 10/02/17 furosemide 40 mg PO QDAY #30 tab 11/03/17 oxybutynin chloride [Ditropan XL] 10 mg PO QDAY #90 tab 11/06/17 citalopram [Celexa] 40 mg PO QDAY #90 tab 11/22/17 gabapentin [Neurontin] 1,200 mg PO TID #180 tab 11/22/17 ibuprofen 800 mg tablet 800 mg PO TID PRN #15 tab 02/01/18 nitrofurantoin macrocrystal 100 mg PO BID 5 Days #10 cap 02/19/18 Allergies Allergy/AdvReac Type Severity Reaction Status Date / Time amphetamine [From ADDERALL] Allergy Severe BLISTERING Verified 02/01/18 14:33 codeine [CODEINE] Allergy Severe Anaphylaxis Verified 02/01/18 14:33 dextroamphetamine Allergy Severe BLISTERING Verified 02/01/18 14:33 [From ADDERALL] latex [LATEX] Allergy Severe Heart Verified 02/01/18 14:33 Palpitation Penicillins [PENICILLINS] Allergy Severe Anaphylaxis Verified 02/01/18 14:33 Sulfa (Sulfonamide Allergy Severe tachycardia Verified 02/01/18 14:33 Antibiotics) [SULFA (SULFONAMIDE ANTIBIOTICS)] adhesive [ADHESIVE] Allergy Mild Verified 02/01/18 14:33 cephalexin [CEPHALEXIN] Allergy Mild Hives Verified 02/01/18 14:33 cyclobenzaprine Allergy Mild Tachycardia Verified 02/01/18 14:33 [CYCLOBENZAPRINE] fluticasone [From FLONASE] Allergy Mild Verified 02/01/18 14:33 zolpidem [From AMBIEN] Allergy Unknown I'M NOT Verified 02/01/18 14:33 SURE Review of Systems Constitutional Reports chills, Denies fatigue and Denies fever(s) ENT Ears, Nose, Mouth, and Throat: Denies dizziness Cardiovascular Denies chest pain and Denies dyspnea Respiratory Denies dyspnea Gastrointestinal Gastrointestinal: Reports abdominal pain, Denies constipation, Denies diarrhea, Denies nausea and Denies vomiting Genitourinary Reports dysuria, Denies flank pain, Denies urinary incontinence and Reports urinary urgency Integumentary/Breasts Denies lesions and Denies rash Neurologic Denies dizziness Endocrine Denies fatigue [facility] Medical History Bipolar depression (Chronic) Chronic back pain (Chronic) HTN (hypertension) (Chronic) Hyperlipidemia (Chronic) Hypothyroidism (Chronic) PTSD (post-traumatic stress disorder) (Chronic) Panic disorder (Chronic) Spinal cord stimulator status (Chronic) Surgical History H/O cervical spine surgery (Resolved) H/O laparoscopy (Resolved) History of tympanoplasty of left ear (Resolved) Social History Smoking Status: Current every day smoker Exam Initial Vital Signs Initial Vital Signs: Vital Signs Temperature 97.6 F 02/19/18 10:14 Pulse Rate 82 02/19/18 10:14 Respiratory Rate 14 02/19/18 10:14 Blood Pressure 142/92 H 02/19/18 10:14 Pulse Oximetry 100 02/19/18 10:14 Const General: cooperative, healthy appearing, comfortable, well developed, well groomed and No acute distress Orientation: alert, awake and oriented x3 Resp Effort & Inspection: normal respiratory effort GI Inspection: non-distended Palpation: soft, No firm and No tender Back/Spine/Pelvis Back: No CVA tenderness Skin Rashes: no rashes Neuro General: alert, awake and oriented x3 Cognition: normal cognition Speech: speech normal Extrem General: normal to inspection and capillary refill normal Psych Appearance: grossly normal and well kempt Course Orders Ordered: ED Orders 02/19/18 10:45 Urine Culture Stat Vital Signs - 8 hr 02/19/18 10:14 Temperature 97.6 F Pulse Rate 82 Respiratory Rate 14 Blood Pressure 142/92 H Pulse Oximetry 100 MDM - Female Genitourinary Lab Data Attestation: I reviewed the patient's lab results. [facility] Narrative Medical decision making narrative: Patient does have right lower quadrant abdominal pain but also has left lower quadrant. Urine dip here in the ER was negative. Despite this patient states that her symptoms today are very similar to her prior urinary tract infection symptoms. She states she always gets pain on the right side like what she has today which she has an infection. She states she has been on doxycycline in the past which has resolved the symptoms. Will hold on further workup today given this stated history. Did consider other infectious processes such as appendicitis or other adnexal issue such as ovarian issues however since the patient stated multiple times that this is just like her prior urinary tract infections will send home with a prescription for Macrobid and good return precautions. Patient expressed understanding and agreement with this plan. Discharge Plan Departure Patient Disposition: Home, Self-Care Clinical Impression: Urinary tract infection, Abdominal pain Instructions: DI for Urinary Tract Infection (UTI), DI for Abdominal Pain-Adult Activity Restrictions/Additional Instructions: Recommend that you take the antibiotics that you were given today as directed. Increase her fluid intake. Return to the emergency department for any new or worsening symptoms Prescriptions: New nitrofurantoin macrocrystal 100 mg capsule 100 mg PO BID 5 Days Qty: 10 RF: 0 No Action ibuprofen 800 mg tablet 800 mg PO TID PRN (Reason: pain) Qty: 15 RF: 0 albuterol sulfate 2.5 MG/3 ML solution for nebulization 3 ml INH Q4HP Qty: 90 RF: 5 epinephrine 0.3 MG/0.3 ML auto-injector 0.3 mg IM X1 Qty: 1 RF: 5 lovastatin 20 MG tablet 20 mg PO QDAYPM Qty: 90 RF: 3 omeprazole 40 MG capsule,delayed release(DR/EC) 40 mg PO QAM Qty: 30 RF: 11 albuterol sulfate [Ventolin HFA] 90 MCG/PUFF HFA aerosol inhaler 2 puff INH Q4HP PRNQty: 8 RF: 11 levothyroxine 100 MCG tablet 0.1 mg PO QAM Qty: 90 RF: 1 clonazepam [Klonopin] 1 MG tablet 1 mg PO QID Qty: 120 RF: 5 meloxicam [Mobic] 15 MG tablet 15 mg PO AMCC Qty: 90 RF: 1 mirtazapine [Remeron] 15 MG tablet 15 mg PO HS Qty: 30 RF: 5 furosemide 40 MG tablet 40 mg PO QDAY Qty: 30 RF: 3 oxybutynin chloride [Ditropan XL] 10 MG tablet extended release 24hr 10 mg PO QDAY Qty: 90 RF: 1 citalopram [Celexa] 40 MG tablet 40 mg PO QDAY Qty: 90 RF: 3 gabapentin [Neurontin] 600 MG tablet 1,200 mg PO TID Qty: 180 RF: 1
[2018-02-19 11:04] VITALS: BP 115/60; PULSE 74; O2SAT 100
== END 2018-02-19 11:09 | disposition home or self-care (01) ==
PROVIDERS: Emergency Provider Emergency Medicine; PCP Family Medicine
DX: N39.0 Urinary tract infection, site not specified (principal); R10.9 Unspecified abdominal pain
CPT/HCPCS: 81003; 87086; 99282